=== PATIENT | male | born 1960 | race Caucasian/White ===

== ENCOUNTER → 2020-06-16 | Day surgery (SDC) | payer OTHER, MEDICARE ==
[2020-06-16 13:10] VITALS: BP 158/93
== END | disposition home or self-care (01) ==
LOC: SURG 13:02
PROVIDERS: ATTEND Anesthesiology
DX: M25.561 Pain in right knee (principal); M54.16 Radiculopathy, lumbar region; M96.1 Postlaminectomy syndrome, not elsewhere classified; G89.4 Chronic pain syndrome; F11.99 Opioid use, unspecified with unspecified opioid-induced disorder; Z79.899 Other long term (current) drug therapy
CPT/HCPCS: 99204; G0463